=== PATIENT | female | born 1965 | race American Indian/Alaskan Native ===

== ENCOUNTER 2021-04-21 21:35 | Emergency (ER) | payer MEDICAID ==
[~2021-04-21] VITALS: Ht 152.4 cm; Wt 49.9 kg
[2021-04-21 22:05] VITALS: BP 142/72
--- NOTE | 2021-04-21 22:08 | NUR ---
TO LOBBY A/W BED AMBULATORY
--- NOTE | 2021-04-21 23:18 | NUR ---
55 Y/O FEMALE PATIENT PRESENTS TO ED WITH C/O RIGHT FLANK PAIN . PT STATES " I HAVE A RIGHT LOWER BACK PAIN OF 9/10 AND A HEADACHE. I ALSO HAVE A FEVER, AND NAUSEA". SKIN IS PINK/WARM/DRY; AAOX4 WITH EVEN AND STEADY GAIT; LUNGS CLEAR BL; HR EVEN AND REGULAR; PT DENIES ANY CP, SOB, OR COUGH AT THIS TIME; PATIENT STATES PAIN OF 9/10 AT THIS TIME; VSS; PATIENT POSITIONED FOR COMFORT; HOB ELEVATED; BEDRAILS UP X2; BED DOWN. ER MD MADE AWARE OF PT STATUS. PMH: THYROID PROBLEMS NKA MENOPAUSE
--- NOTE | 2021-04-21 23:23 | NUR ---
JANNY OCONNELL AT BEDSIDE FOR EXAMINATION.
[2021-04-21] MEDS ORDERED: ONDANSETRON 4 MG/2 ML VIAL IVP ONE (23:30)
[2021-04-21] MEDS ORDERED: KETOROLAC 30 MG/ML VIAL IVP ONE (23:30)
--- NOTE | 2021-04-22 00:07 | NUR ---
LABS DRAWN AND TAKEN TO LAB. HANDED TO LISHA FROM LAB.
[2021-04-22] MEDS ORDERED: NACL 0.9% 1,000 ML IV ONE (00:10)
[2021-04-22 00:19] LABS: APPEARANCE,URINE CLEAR (CLEAR); BILIRUBIN,URINE NEGATIVE (NEGATIVE); BLOOD, URINE 2+ (NEGATIVE); COLOR,URINE YELLOW (YELLOW); LEUKOCYTE ESTERASE ,URINE NEGATIVE (NEGATIVE); NITRITE, URINE NEGATIVE (NEGATIVE); PH,URINE 5.5 (5.0-9.0); UGLUCOSE NEGATIVE (NEGATIVE)
[2021-04-22 00:19] LABS: HEMATOCRIT 36.4 % (36-48); HEMOGLOBIN 12.3 g/dL (12.0-16.0); MEAN CORPUSCULAR HEMOGLOBIN 30 pg (27-31); MEAN CORPUSCULAR HGB CONC 34 g/dL (33-37); MEAN CORPUSCULAR VOLUME 87.6 fL (80-94); PLATELET COUNT (AUTO) 199 K/uL (140-450); RED BLOOD CELL COUNT(AUTO) 4.16 MIL/uL (4.20-5.40); RED CELL DISTRIBUTION WIDTH 13.5 % (11.6-13.7); WHITE BLOOD COUNT (AUTO) 5.9 K/uL (4.8-10.8)
[2021-04-22 00:37] LABS: RBC,URINE 0-5 /HPF (0-5); WBC,URINE NONE SEEN /HPF (0-5)
[2021-04-22 00:57] LABS: ALBUMIN 4.6 g/dL (3.4-5.0); ANION GAP 12.8 (8-16); CREATININE 0.7 mg/dL (0.6-1.3); POTASSIUM 3.8 mmol/L (3.5-5.1); TOTAL BILIRUBIN 0.2 mg/dL (0.0-1.0)
[2021-04-22 00:58] LABS: LYMPHOCYTES % (MANUAL) 11 % (20-46); MONOCYTES % (MANUAL) 9 % (5-12)
[2021-04-22] MEDS ORDERED: ONDA-24 SL (02:55)
[2021-04-22] MEDS ORDERED: METR500T1 PO (02:55)
[2021-04-22] MEDS ORDERED: ACET-10509 PO (02:55)
[2021-04-22 03:05] VITALS: BP 102/69
--- NOTE | 2021-04-22 03:05 | NUR ---
Patient discharged with v/s stable. Written and verbal after care instructions given and explained. Patient alert, oriented and verbalized understanding of instructions. Ambulatory with steady gait. All questions addressed prior to discharge. ID band removed. Patient advised to follow up with PMD. Rx of TYLENOL EXTRA STRENGTH, FLAGYL, AND ZOFRAN ODT given. Patient educated on indication of medication including possible reaction and side effects. Opportunity to ask questions provided and answered.
== END 2021-04-22 03:05 | disposition home or self-care (01) ==
LOC: MED 21:35
DX: R10.9 Unspecified abdominal pain (principal); Z20.822 Contact with and (suspected) exposure to COVID-19; R11.10 Vomiting, unspecified; R19.7 Diarrhea, unspecified; Z90.49 Acquired absence of other specified parts of digestive tract
CPT/HCPCS: 36415; 74176; 80053; 81001; 81025; 83690; 85025; 96361; 96374; 96375; 99284; J1885; J2405; J7030